=== PATIENT | male | born 1955 | race Caucasian/White ===

== ENCOUNTER → 2021-05-17 | Outpatient (CLI) | payer MEDICARE ==
[~2021-05-17] MED LIST: VISIPAQUE 320 MG/ML, 150ML BOTTLE ONE
== END | disposition home or self-care (01) ==
LOC: CVU 09:36
PROVIDERS: ATTEND Internal Medicine Cardiovascular Disease
DX: I35.0 Nonrheumatic aortic (valve) stenosis (principal); I65.23 Occlusion and stenosis of bilateral carotid arteries; E78.5 Hyperlipidemia, unspecified; K80.20 Calculus of gallbladder without cholecystitis without obstruction; I25.10 Atherosclerotic heart disease of native coronary artery without angina pectoris
CPT/HCPCS: 71275; 74174; 93880; Q9967

== ENCOUNTER 2021-06-05 05:57 | Emergency (ER) | payer MEDICARE ==
[~2021-06-05] VITALS: Ht 193 cm; Wt 109.1 kg
--- NOTE | 2021-06-05 06:16 | NUR ---
PT PRESENTS TO THE ED PRESENTS AFTER COUGHING UP BLOOD THIS MORNING. PT IS SCHEDULED TO HAVE AORTIC REPAIR WITH BYPASS AND STENTS PLACED ON 06/13/21. PT IN GOWN, RESTING ON GURNEY, AND PLACED ON CONTINUOUS MONITORING.
--- NOTE | 2021-06-05 06:47 | NUR ---
REPORT FROM PETRA. PT SLEEPING.
[2021-06-05 06:49] LABS: BASOPHILS % (AUTO) 0 % (0-1); EOSINOPHILS % (AUTO) 6 % (1-7); LYMPHOCYTES % (AUTO) 21 % (22-44); MEAN CORPUSCULAR HEMOGLOBIN 35.4 pg (27.5-34.5); MEAN CORPUSCULAR HGB CONC 34.5 g/dL (33.2-36.2); MEAN PLATELET VOLUME 8.4 fL (7.4-10.4); MONOCYTES % (AUTO) 9 % (2-9); NEUTROPHILS % (AUTO) 64 % (42-75); PLATELET COUNT 120 x10^3/uL (130-400); RED BLOOD COUNT 4.31 x10^6/uL (4.38-5.82); RED CELL DISTRIBUTION WIDTH 13.4 % (9.4-14.8)
[2021-06-05 06:58] LABS: ALANINE AMINOTRANSFERASE 26 U/L (12-78); ALBUMIN 3.4 g/dL (3.4-5.0); ANION GAP 7 mmol/L (5-15); CHLORIDE 112 mmol/L (98-107); CREATININE 1.12 mg/dL (0.7-1.3)
[2021-06-05 06:59] LABS: D-DIMER 0.47 ug/mlFEU (0.00-0.52); INTERNATIONAL NORMALIZED RATIO 1.04 (0.93-1.1); PROTHROMBIN TIME 11.1 Seconds (9.6-11.5)
[2021-06-05 07:03] LABS: ALKALINE PHOSPHATASE 39 U/L (45-117); BILIRUBIN,TOTAL 0.9 mg/dL (0.2-1.0); TOTAL PROTEIN 7.3 g/dL (6.4-8.2); TROPONIN I < 0.015 ng/mL (0.000-0.045)
--- NOTE | 2021-06-05 08:23 | NUR ---
AMBULATED PT IN SOMMERS. RA ABOVE 92% WHILE WALKING. PT DENIES CP. SOB UNCHANGED
[2021-06-05] MEDS ORDERED: FUROSEMIDE 40 MG/4 ML ONE (08:45)
[2021-06-05] MEDS ORDERED: FUROSEMIDE 40 MG/4 ML IV ONE (09:00)
--- NOTE | 2021-06-05 09:36 | NUR ---
PT AMBULATED TO BATHROOM. STEADY GAIT.
--- NOTE | 2021-06-05 10:09 | NUR ---
Patient given discharge instructions and they have confirmed that they understand the instructions. Patient ambulatory with steady gait.
[2021-06-05 10:11] VITALS: BP 125/68
== END 2021-06-05 10:19 | disposition home or self-care (01) ==
LOC: ED 07:15
DX: J18.9 Pneumonia, unspecified organism (principal); R06.00 Dyspnea, unspecified; Z20.822 Contact with and (suspected) exposure to COVID-19; E78.00 Pure hypercholesterolemia, unspecified; E03.9 Hypothyroidism, unspecified
CPT/HCPCS: 36415; 71045; 80053; 83880; 84484; 85025; 85379; 85610; 85730; 93005; 96374; 99285; J1940; U0003; U0005

== ENCOUNTER 2021-06-11 07:39 | Observation (INO) | payer MEDICARE ==
[~2021-06-11] VITALS: Ht 193 cm; Wt 106.3 kg
[2021-06-11] MEDS: SODIUM CHLORIDE 0.9% 1,000 ML IV SCH ×6 (08:00→23:00)
[2021-06-11] MEDS ORDERED: ASPI81TA45 PO (08:15)
[2021-06-11] MEDS ORDERED: LEVO50TA5 PO (08:15)
[2021-06-11] MEDS ORDERED: ATOR20TA37 PO (08:15)
[2021-06-11 08:21] VITALS: BP 131/85
[2021-06-11 09:05] LABS: ANION GAP 8 mmol/L (5-15); CALCIUM 9.1 mg/dL (8.5-10.1); CHLORIDE 112 mmol/L (98-107); CREATININE 1.05 mg/dL (0.7-1.3)
[2021-06-11] MEDS ORDERED: VERAPAMIL 2.5 MG/ML, 2ML ONE (11:04)
[2021-06-11] MEDS ORDERED: LIDOCAINE-MPF 1%, 5ML ONE (11:04)
[2021-06-11] MEDS ORDERED: FENTANYL PF 100 MCG/2ML ONE (11:04)
[2021-06-11] MEDS ORDERED: HEPARIN 1,000 UNITS/ML, 10ML ONE (11:04)
[2021-06-11] MEDS ORDERED: BIVALIRUDIN 250 MG ONE (11:04)
[2021-06-11] MEDS ORDERED: MIDAZOLAM 1 MG/ML, 5ML ONE (11:04)
[2021-06-11] MEDS ORDERED: TICAGRELOR 90 MG TABLET ONE (11:04)
[2021-06-11] MEDS ORDERED: ASPIRIN 81 MG TABLET CHEW ONE (12:06)
[2021-06-11] MEDS: METOPROLOL TARTRATE 25 MG TAB PO SCH (17:19)
[2021-06-11 18:59] VITALS: BP 153/80
[2021-06-11] MEDS ORDERED: ATORVASTATIN 40 MG TABLET PO SCH (21:00)
[2021-06-11] MEDS ORDERED: ATORVASTATIN 20 MG TABLET PO SCH (21:00)
[2021-06-11] MEDS ORDERED: TICAGRELOR 90 MG TABLET PO SCH (21:00)
[2021-06-11] MEDS ORDERED: CLOPIDOGREL 75 MG TABLET PO ONE (21:00)
[2021-06-12 03:25] VITALS: BP 111/65
[2021-06-12] MEDS: SODIUM CHLORIDE 0.9% 1,000 ML IV SCH ×5 (04:00→11:06)
[2021-06-12 04:59] VITALS: BP 127/81
[2021-06-12 06:24] VITALS: BP 128/73
[2021-06-12] MEDS: METOPROLOL TARTRATE 25 MG TAB PO SCH (06:26)
[2021-06-12 08:06] VITALS: BP 123/88
[2021-06-12] MEDS ORDERED: CLOPIDOGREL 75 MG TABLET PO SCH (09:00)
[2021-06-12] MEDS ORDERED: ASPIRIN 81 MG TABLET EC PO SCH (09:00)
[2021-06-12] MEDS ORDERED: LEVOTHYROXINE 50 MCG TABLET PO SCH (09:00)
[2021-06-12] MEDS ORDERED: CLOP75TA PO (10:16)
== END 2021-06-12 13:32 | disposition home or self-care (01) ==
LOC: CACL 07:39 → 5SO 14:13 → CACL 22:57 → 5SO 22:58 → INTOOBSV 22:58
PROVIDERS: ADMIT Internal Medicine Cardiovascular Disease; ATTEND Internal Medicine Cardiovascular Disease
DX: I35.0 Nonrheumatic aortic (valve) stenosis (principal); I25.10 Atherosclerotic heart disease of native coronary artery without angina pectoris; R03.0 Elevated blood-pressure reading, without diagnosis of hypertension; E03.9 Hypothyroidism, unspecified; E78.5 Hyperlipidemia, unspecified; Z79.899 Other long term (current) drug therapy
CPT/HCPCS: 36415; 80048; 82962; 93454; 99156; 99157; C1725; C1769; C1874; C1887; C1894; C9600; G0378; J0583; J2250; J3010; Q9967; J1644

== ENCOUNTER 2021-06-22 07:06 | Inpatient (IN) | payer MEDICARE ==
[~2021-06-22] VITALS: Ht 193 cm; Wt 105.0 kg
[~2021-06-22 07:06] MED LIST changes: +ASPI81TA45 PO; +ATOR20TA37 PO; +CLOP75TA PO; +LEVO50TA5 PO; -VISIPAQUE 320 MG/ML, 150ML BOTTLE ONE
[2021-06-22] MEDS ORDERED: ONDANSETRON 2MG/ML, 2ML IV PRN (07:30)
[2021-06-22 07:31] VITALS: BP 135/86
[2021-06-22] MEDS ORDERED: LEVO137T3 PO (07:52)
[2021-06-22 08:02] LABS: BASOPHILS % (AUTO) 1 % (0-1); EOSINOPHILS % (AUTO) 6 % (1-7); LYMPHOCYTES % (AUTO) 26 % (22-44); MEAN CORPUSCULAR HGB CONC 34.4 g/dL (33.2-36.2); MEAN PLATELET VOLUME 8.8 fL (7.4-10.4); MONOCYTES % (AUTO) 11 % (2-9); NEUTROPHILS % (AUTO) 56 % (42-75); PLATELET COUNT 126 x10^3/uL (130-400); RED BLOOD COUNT 4.19 x10^6/uL (4.38-5.82); RED CELL DISTRIBUTION WIDTH 13.2 % (9.4-14.8)
[2021-06-22 08:11] LABS: ALANINE AMINOTRANSFERASE 26 U/L (12-78); ALBUMIN 3.7 g/dL (3.4-5.0); ANION GAP 6 mmol/L (5-15); CALCIUM 8.9 mg/dL (8.5-10.1); CHLORIDE 114 mmol/L (98-107); CREATININE 0.95 mg/dL (0.7-1.3)
[2021-06-22 08:14] LABS: ALKALINE PHOSPHATASE 37 U/L (45-117); BILIRUBIN,TOTAL 0.5 mg/dL (0.2-1.0); TOTAL PROTEIN 7.5 g/dL (6.4-8.2)
[2021-06-22 08:16] LABS: INTERNATIONAL NORMALIZED RATIO 1.01 (0.93-1.1); PROTHROMBIN TIME 10.8 Seconds (9.6-11.5)
[2021-06-22] MEDS ORDERED: FENTANYL PF 250 MCG/5ML ONE (08:35)
[2021-06-22] MEDS ORDERED: CEFAZOLIN 1,000 MG ONE ×2 (08:35→08:39)
[2021-06-22] MEDS ORDERED: PHENYLEPHRINE 10 MG/ML ONE (08:39)
[2021-06-22] MEDS ORDERED: DEXAMETHASONE 4 MG/ML, 1ML ONE ×2 (08:39)
[2021-06-22] MEDS ORDERED: HEPARIN 1,000 UNITS/ML, 10ML ONE ×2 (08:39)
[2021-06-22] MEDS ORDERED: SUCCINYLCHOLINE 20 MG/ML, 10ML ONE (08:39)
[2021-06-22] MEDS ORDERED: PROPOFOL 10 MG/ML, 20ML ONE (08:39)
[2021-06-22] MEDS ORDERED: ROCURONIUM 10MG/ML,5ML ONE (08:39)
[2021-06-22] MEDS ORDERED: PROTAMINE SULFATE 10 MG/ML, 5ML ONE (09:29)
[2021-06-22] MEDS ORDERED: SODIUM CHLORIDE 0.9% 1,000 ML IV ONE (10:00)
[2021-06-22] MEDS ORDERED: hydrALAzine 20 MG/ML, 1ML IVPush PRN (10:00)
[2021-06-22] MEDS ORDERED: ACETAMINOPHEN 325 MG TABLET PO PRN (10:00)
[2021-06-22] MEDS ORDERED: CLOPIDOGREL 75 MG TABLET ONE (10:07)
[2021-06-22] MEDS ORDERED: ASPIRIN 81 MG TABLET CHEW ONE (10:08)
[2021-06-22] MEDS: ASPIRIN 81 MG TABLET EC PO SCH (10:12)
[2021-06-22] MEDS: CLOPIDOGREL 75 MG TABLET PO SCH (10:12)
[2021-06-22] MEDS: PLEASE ENTER ALLERGIES MC SCH ×2 (11:35→19:30)
[2021-06-22 13:43] VITALS: BP 111/82
[2021-06-22 20:02] VITALS: BP 148/77
[2021-06-22] MEDS ORDERED: ATORVASTATIN 10 MG TABLET PO SCH (21:00)
[2021-06-23 01:09] VITALS: BP 146/75
[2021-06-23] MEDS ORDERED: LEVOTHYROXINE 137 MCG TABLET PO SCH (06:00)
[2021-06-23 06:39] LABS: BASOPHILS % (AUTO) 1 % (0-1); EOSINOPHILS % (AUTO) 0 % (1-7); LYMPHOCYTES % (AUTO) 10 % (22-44); MEAN CORPUSCULAR HEMOGLOBIN 34.9 pg (27.5-34.5); MEAN CORPUSCULAR HGB CONC 34.3 g/dL (33.2-36.2); MEAN PLATELET VOLUME 8.7 fL (7.4-10.4); MONOCYTES % (AUTO) 9 % (2-9); NEUTROPHILS % (AUTO) 81 % (42-75); PLATELET COUNT 110 x10^3/uL (130-400); RED BLOOD COUNT 3.98 x10^6/uL (4.38-5.82); RED CELL DISTRIBUTION WIDTH 13.5 % (9.4-14.8)
[2021-06-23 06:50] VITALS: BP 133/85
[2021-06-23 06:51] LABS: ANION GAP 5 mmol/L (5-15); CALCIUM 8.9 mg/dL (8.5-10.1); CHLORIDE 113 mmol/L (98-107); CREATININE 0.92 mg/dL (0.7-1.3)
[2021-06-23] MEDS: ASPIRIN 81 MG TABLET EC PO SCH (09:39)
[2021-06-23] MEDS: CLOPIDOGREL 75 MG TABLET PO SCH (09:39)
[2021-06-23] MEDS ORDERED: ACET325T26 PO (10:51)
== END 2021-06-23 11:29 | disposition home or self-care (01) | DRG 266 ==
LOC: ORIP 07:06 → 5SO 10:46
PROVIDERS: ADMIT Internal Medicine Cardiovascular Disease; ATTEND Internal Medicine Cardiovascular Disease
PROC: B3101ZZ Fluoroscopy of Thoracic Aorta using Low Osmolar Contrast (ICD-10-PCS; 2021-06-22)
PROC: B24BZZ4 Ultrasonography of Heart with Aorta, Transesophageal (ICD-10-PCS; 2021-06-22)
PROC: 02RF38Z Replacement of Aortic Valve with Zooplastic Tissue, Percutaneous Approach (ICD-10-PCS; principal; 2021-06-22 09:00)
DX: I35.0 Nonrheumatic aortic (valve) stenosis (principal); Z00.6 Encounter for examination for normal comparison and control in clinical research program; I50.33 Acute on chronic diastolic (congestive) heart failure; Z20.822 Contact with and (suspected) exposure to COVID-19; E03.9 Hypothyroidism, unspecified; E78.5 Hyperlipidemia, unspecified; I25.10 Atherosclerotic heart disease of native coronary artery without angina pectoris; Z88.8 Allergy status to other drugs, medicaments and biological substances
CPT/HCPCS: 33361; 36415; 76937; 80048; 80053; 85025; 85347; 85610; 86850; 86900; 86923; 87635; 93005; 93306; 93355; C1760; C1769; C1894; G0378; J0690; J1100; J1644; J2704; J2720; J3010; J0330; J2370; J7030; Q9967

== ENCOUNTER 2021-07-22 15:19 | Outpatient (CLI) | payer MEDICARE ==
[~2021-07-22 15:19] MED LIST changes: +ACET325T26 PO; +LEVO137T3 PO
== END 2021-07-22 23:59 | disposition home or self-care (01) ==
LOC: CVU 15:19
PROVIDERS: ATTEND Internal Medicine Cardiovascular Disease
DX: Z01.810 Encounter for preprocedural cardiovascular examination (principal); I08.8 Other rheumatic multiple valve diseases; I65.29 Occlusion and stenosis of unspecified carotid artery
CPT/HCPCS: 93306